=== PATIENT | female | born 1960 | race Caucasian/White ===

== ENCOUNTER 2016-09-07 13:38 | Inpatient (IN) | payer OTHER ==
[~2016-09-07] VITALS: Ht 167.6 cm; Wt 89.5 kg
--- NOTE | ~2016-09-07 | EKG ---
[place] [address] [facility] [employer] [address] ELECTROCARDIOGRAM REPORT Name: LINDDANILEA WEAVER Room #: 207-P ADM IN M.R.#: [id number] Admission: 09/07/16 Attend Phys: Di Bui Discharge: Date of : 62 Report #: [id number] THIS REPORT FOR: //name// [facility] ED Test Date: 2016-09-07 Test Time: 14:30:32 Pat Name: DANIELA LIND Department: Room: 207 Gender: F Director [employer]: prisca : 1960 Requested By: Nathalie Santos Order Number: [id number] MD: Philip Urbina Measurements Intervals [place] Rate: 103 P: 71 DE: 160 QRS: 30 QRSD: 108 T: 65 QT: 378 QTc: 495 Interpretive Statements Sinus tachycardia Probable left atrial enlargement LVH with secondary repolarization abnormality Borderline prolonged QT interval Baseline wander in lead(s) V6 Compared to ECG 08/02/2016 11:03:43 Ventricular premature complex(es) no longer present Electronically Signed On 09-08-2016 8:39:10 CDT by Philip Urbina [email or web address] <ELECTRONICALLY SIGNED> By: Philip Urbina MD, [facility] 09/08/16 0839 1430 1430 Philip Urbina MD, [facility] /EPI
--- NOTE | ~2016-09-07 | 2DMMODE ---
[facility] [address] [facility] [address] 2 D/M-MODE ECHOCARDIOGRAM Name: LINDDANIELA WEAVER SURY Room #: 207-P ADM IN M.R.#: [id number] Admission: 09/07/16 Attend Phys: Di Mitchell Discharge: Date of : 62 Date of Service: 09/08/16 0825 Report #: [id number] THIS REPORT FOR: //name// APPROVED REPORT Study performed: 09/08/2016 07:09:09 EXAM: Comprehensive 2D, Doppler, and color-flow Echocardiogram Patient Location: Bedside Room #: 207 Blood Pressure: 145/97 mmHg HR: 90 bpm Other Information Study Quality: Adequate Indications Pulmonary edema, rule out cardiomyopathy. Hx: tobacco abuse recent pneumonia. 2D Dimensions RVDd: 41.06 mm LVEF(%): 14.17 (>50%) IVSd: 12.00 (7-11mm) LVOT Diam: 22.84 (18-24mm) LVDd: 66.03 mm PWd: 11.91 (7-11mm) Ascending Aorta: 37.21 mm LVDs: 61.74 (25-40mm) Aortic Root: 37.25 mm Lloyd's LVEF: 14.17 % Volumes Left Atrial Volume (Systole) Single Plane 4CH: 102.39 mL Single Plane 2CH: 117.62 mL LA ESV Index: 61.00 mL/m2 Aortic Valve AoV Peak Berhane.: 0.97 m/s AO Peak Gr.: 3.79 mmHg LV Max P.44 mmHg LV Max: 0.60 m/s Mitral Valve E/A Ratio: 2.2 MV Decel. Time: 128.67 ms MV E Max Berhane.: 1.03 m/s [facility] [address] [place] [address] 2 D/M-MODE ECHOCARDIOGRAM Name: LINDCASEY WEAVERIE [facility] Room #: 207-P [facility] IN M.R.#: [id number] Admission: 09/07/16 Attend Phys: Di Mitchell Discharge: Date of : 62 Date of Service: 09/08/16 0825 Report #: [id number] MV A Berhane.: 0.47 m/s MV PHT: 37.32 ms Pulmonary Valve PV Peak Berhane.: 0.50 m/s PV Peak Gr.: 1.01 mmHg Pulmonary Vein P Vein S: 32.8 m/s P Vein D: 80.7 m/s Tricuspid Valve TR Peak Berhane.: 2.35 m/s RAP Estimate: 5.00 mmHg TR Peak Gr.: 22.13 mmHg RVSP: 27.00 mmHg Left Ventricle Left ventricle is moderately dilated. Mild concentric left ventricular hypertrophy. Left ventricular systolic function is severely decreased. LVEF is 25%. Grade III - reversible restrictive diastolic dysfunction. Right Ventricle The right ventricle is normal size. Right ventricle is hypokinetic. Atria Left atrium is dilated. The right atrium size is normal. Aortic Valve The aortic valve is normal in structure. Trace aortic regurgitation. There is no aortic valvular stenosis. Mitral Valve The mitral valve is normal in structure. Moderate mitral regurgitation. Tricuspid Valve The tricuspid valve is normal in structure. There is mild tricuspid regurgitation. The right atrial pressure is estimated at 5 mmHg. Estimated PAP is 27mmHg. Pulmonic Valve The pulmonary valve is normal in structure. Mild pulmonic regurgitation. Great Vessels Aortic root is borderline dilated. The ascending aorta is borderline [facility] [address] [place] [address] 2 D/M-MODE ECHOCARDIOGRAM Name: DANIELA LIND [facility] Room #: 207-P ADM IN M.R.#: [id number] Admission: 09/07/16 Attend Phys: Di Mitchell Discharge: Date of : 62 Date of Service: 09/08/16 0825 Report #: [id number] dilated. IVC is normal in size and collapses >50% with inspiration. Pericardium Small pericardial effusion <Conclusion> Left ventricular systolic function is severely decreased. LVEF is 25%. Grade III distolic dysfunction. Left atrium is dilated. The aortic valve is normal in structure. Trace aortic regurgitation, no stenosis. The mitral valve is normal in structure. Moderate mitral regurgitation. Pulmonary artery pressure of 30mmHg. Small pericardial effusion <ELECTRONICALLY SIGNED> By: Philip Urbina MD, FACC 09/08/16824 4 4 Philip Urbina MD, [facility] /INF
[~2016-09-07 13:38] MED LIST: AZITHROMYCIN 2250 MG PO; PREDNISONE 20 M20 MG PO; TESSALON PERLE100 MG PO; VENTOLIN HFA 1818 GM INH
[2016-09-07 13:39] VITALS: BP 136/97
[2016-09-07 14:21] LABS: ABSOLUTE NEUTROPHILS 5.2 thou/uL (1.4-8.2); BASOPHILS 0.9 % (0.0-2.0); EOSINOPHILS 1.9 % (0.0-3.0); HEMATOCRIT 42.5 % (37.0-47.0); HEMOGLOBIN 14.2 gm/dL (12.0-15.0); LYMPHOCYTES 24.4 % (24.0-44.0); MANUAL DIFF NO; MCH 30.4 pg (26.0-34.0); MCHC 33.3 g/dL (28.0-37.0); MCV 91.3 fL (80.0-100.0); MONOCYTES 5.7 % (1.0-8.0); PLATELET COUNT 383 thou/uL (150-400); POLYS 67.1 % (36.0-66.0); RBC 4.66 mil/uL (4.20-5.00); RDW 14.1 % (10.5-14.5); WBC 7.8 thou/uL (4.0-11.0)
[2016-09-07 14:36] LABS: CALCIUM 8.9 mg/dL (8.5-10.1); CREATININE 0.6 mg/dL (0.6-1.0); POTASSIUM 3.9 mmol/L (3.5-5.1)
[2016-09-07 14:41] LABS: TROPONIN-I 0.07 ng/mL (<0.04-0.07)
[2016-09-07 15:47] LABS: CHOLESTEROL 154 mg/dL (<200); HDL CHOLESTEROL 45 mg/dL (>40); LDL CHOLESTEROL 91 mg/dL (<100); TC:HDL 3.4 Ratio (Not establshd); TRIGLYCERIDE 93 mg/dL (<150); VLDL 19 mg/dL (<40)
[2016-09-07 16:01] VITALS: BP 149/92
[2016-09-07 16:45] VITALS: BP 135/83
[2016-09-07 17:11] VITALS: BP 135/83
[2016-09-07 19:26] VITALS: BP 148/90
[2016-09-07 23:38] VITALS: BP 145/94
[2016-09-08 02:54] LABS: CALCIUM 8.8 mg/dL (8.5-10.1); CREATININE 0.7 mg/dL (0.6-1.0); POTASSIUM 3.7 mmol/L (3.5-5.1); TROPONIN-I 0.06 ng/mL (<0.04-0.07)
[2016-09-08 03:54] VITALS: BP 145/97
[2016-09-08 08:15] VITALS: BP 133/98
[2016-09-08 11:30] VITALS: BP 119/84
[2016-09-08 15:39] VITALS: BP 117/80
[2016-09-08 19:25] VITALS: BP 103/67
[2016-09-09 03:08] VITALS: BP 109/79
[2016-09-09 07:15] VITALS: BP 110/61
[2016-09-09 11:40] VITALS: BP 91/55
[2016-09-09 16:05] VITALS: BP 91/49
[2016-09-09 19:37] VITALS: BP 93/61
[2016-09-10 00:08] LABS: GLYCOHEMOGLOBIN (HGB A1C) 5.1 % (4.8-5.6)
[2016-09-10 04:15] LABS: ALBUMIN 3.3 g/dL (3.4-5.0); CALCIUM 8.9 mg/dL (8.5-10.1); CREATININE 0.8 mg/dL (0.6-1.0); PHOSPHORUS 4.7 mg/dL (2.5-4.9); POTASSIUM 3.4 mmol/L (3.5-5.1)
[2016-09-10 04:16] VITALS: BP 89/60
[2016-09-10 04:20] LABS: HEMOGLOBIN 15.1 gm/dL (12.0-15.0); MCH 30.7 pg (26.0-34.0); MCHC 33.6 g/dL (28.0-37.0); MCV 91.3 fL (80.0-100.0); RBC 4.93 mil/uL (4.20-5.00); RDW 14.1 % (10.5-14.5); WBC 6.2 thou/uL (4.0-11.0)
[2016-09-10 07:26] VITALS: BP 105/75
[2016-09-10 11:45] VITALS: BP 99/64
[2016-09-10 16:20] VITALS: BP 108/67
[2016-09-10 19:26] VITALS: BP 102/55
[2016-09-11 03:19] LABS: ALBUMIN 3.4 g/dL (3.4-5.0); CALCIUM 9.1 mg/dL (8.5-10.1); CREATININE 0.8 mg/dL (0.6-1.0); PHOSPHORUS 4.7 mg/dL (2.5-4.9); POTASSIUM 4.9 mmol/L (3.5-5.1)
[2016-09-11 04:17] VITALS: BP 118/79
[2016-09-11 07:20] VITALS: BP 121/85
[2016-09-11 12:00] VITALS: BP 107/70
[2016-09-11] MEDS ORDERED: ASPIR 8181 MG PO (12:45)
[2016-09-11] MEDS ORDERED: CARVEDILOL3.125 MG PO (12:45)
[2016-09-11] MEDS ORDERED: ALTACE5 MG PO (12:45)
[2016-09-11] MEDS ORDERED: LEVOTHYROXINE0.05 MG PO (12:46)
[2016-09-11] MEDS ORDERED: LASIX 40 MG TAB40 M1 PO (12:46)
[2016-09-11 13:06] VITALS: BP 107/70
== END 2016-09-11 14:09 | disposition home or self-care (01) | DRG 314 ==
LOC: ER 13:38 → 2N 15:20 → EROBS 15:20 → 2N 16:39
PROVIDERS: Emergency Medicine; Hospitalist
DX: I42.9 Cardiomyopathy, unspecified (principal); I50.21 Acute systolic (congestive) heart failure; J81.1 Chronic pulmonary edema; I31.3 Pericardial effusion (noninflammatory); I42.8 Other cardiomyopathies; F17.210 Nicotine dependence, cigarettes, uncomplicated; E87.6 Hypokalemia; E03.9 Hypothyroidism, unspecified; Z87.01 Personal history of pneumonia (recurrent); Z88.6 Allergy status to analgesic agent; Z90.49 Acquired absence of other specified parts of digestive tract; Z79.899 Other long term (current) drug therapy; Z71.6 Tobacco abuse counseling; Z82.49 Family history of ischemic heart disease and other diseases of the circulatory system
CPT/HCPCS: 10081

== ENCOUNTER → 2017-03-05 | Outpatient (CLI) | payer OTHER ==
[~2017-03-05] MED LIST changes: +ALTACE5 MG PO; +ASPIR 8181 MG PO; +CARVEDILOL3.125 MG PO; +LASIX 40 MG TAB40 M1 PO; +LEVOTHYROXINE0.05 MG PO
--- NOTE | ~2017-03-05 | 2DMMODE ---
[facility] [address] [employer] [place] [address] 2 D/M-MODE ECHOCARDIOGRAM Name: RUBEN LIND [facility] [id number] Admission: 03/05/17 Attend Phys: Alex Fernández MD Discharge: Date of : 62 Date of Service: 03/05/17 1620 Report #: [id number] THIS REPORT FOR: //name// APPROVED REPORT Study performed: 03/05/2017 13:50:55 EXAM: Comprehensive 2D, Doppler, and color-flow Echocardiogram Patient Location: Echo lab Status: routine BSA: 2.04 BP: 110/75 mmHg Other Information Study Quality: Adequate Indications Cardiomyopathy 2D Dimensions RVDd: 30.03 mm LVEF(%): 49.84 (>50%) IVSd: 16.17 (7-11mm) LVOT Diam: 26.90 (18-24mm) LVDd: 48.61 mm PWd: 15.34 (7-11mm) Ascending Ao: 33.73 (22-36mm) LVDs: 36.31 (25-40mm) Aortic Root: 33.98 mm IVC: 18.00 mm Lloyd's LVEF: 49.84 % Volumes Left Atrial Volume (Systole) Single Plane 4CH: 38.12 mL Single Plane 2CH: 38.07 mL LA ESV Index: 22.00 mL/m2 Aortic Valve AoV Peak Berhane.: 1.22 m/s AO Peak Gr.: 5.95 mmHg LVOT Max P.18 mmHg LVOT Max V: 0.89 m/s HERBER Vmax: 4.16 cm2 Mitral Valve E/A Ratio: 0.8 MV Decel. Time: 278.65 ms MV E Max Berhane.: 0.49 m/s [facility] [address] [place] [address] 2 D/M-MODE ECHOCARDIOGRAM Name: RUBEN LIND [facility] Room #: REG [facility]..#: [id number] Admission: 03/05/17 Attend Phys: Alex Fernández MD Discharge: Date of : 62 Date of Service: 03/05/17 1620 Report #: [id number] MV A Berhane.: 0.60 m/s MV PHT: 80.81 ms IVRT: 155.71 ms Pulmonary Valve PV Peak Berhane.: 0.76 m/s PV Peak Gr.: 2.30 mmHg Pulmonary Vein P Vein S: 0.62 m/s P Vein A: 0.25 m/s P Vein D: 0.39 m/s P Vein A Dur.: 103.8 msec P Vein S/D Ratio: 1.59 Tricuspid Valve RAP Estimate: 5.00 mmHg Left Ventricle The left ventricle is normal size. Mild concentric left ventricular hypertrophy. Left ventricular systolic function is mild to moderately decreased. LVEF is 40-45%. Mild diastolic dysfunction is present (impaired relaxation pattern). Right Ventricle The right ventricle is normal size. Right ventricle is hypokinetic. Atria The left atrium size is normal. The right atrium size is normal. Aortic Valve The aortic valve is normal in structure. No aortic regurgitation is present. There is no aortic valvular stenosis. Mitral Valve The mitral valve is normal in structure. Mild mitral regurgitation. No evidence of mitral valve stenosis. Tricuspid Valve The tricuspid valve is normal in structure. Trace tricuspid regurgitation. Unable to assess PA pressure. Pulmonic Valve The pulmonary valve is normal in structure. Trace to mild pulmonic regurgitation. Great Vessels [facility] [address] [place] [address] 2 D/M-MODE ECHOCARDIOGRAM Name: RUBEN LIND [id number] Admission: 03/05/17 Attend Phys: Alex Fernández MD Discharge: Date of : 62 Date of Service: 03/05/17 1620 Report #: [id number] The aortic root is normal in size. IVC is normal in size and collapses >50% with inspiration. Pericardium There is no pericardial effusion. <Conclusion> The left ventricle is normal size. Mild concentric left ventricular hypertrophy. Left ventricular systolic function is mild to moderately decreased. LVEF is 40-45%. Mild diastolic dysfunction is present (impaired relaxation pattern). The right ventricle is normal size. The left atrium size is normal. The aortic valve is normal in structure. Mild mitral regurgitation. <ELECTRONICALLY SIGNED> By: Alex Fernández MD 03/05/171619 19 19 Alex Fernández MD /INF
== END ==
LOC: CV 02-08 11:49
DX: I42.9 Cardiomyopathy, unspecified (principal)